=== PATIENT | male | born 1995 | race Caucasian/White ===

== ENCOUNTER 2018-01-10 17:27 | Emergency (ER) | payer MEDICAID | END 2018-01-10 17:35 | disposition home or self-care (01) | LOC: E/R 17:27 | DX: M25.512 Pain in left shoulder (principal); J45.909 Unspecified asthma, uncomplicated | CPT/HCPCS: 99283; Z7502 ==

== ENCOUNTER 2018-08-25 15:46 | Emergency (ER) | payer OTHER, MEDICAID ==
[2018-08-25] MEDS: ACETAMINOPHEN 325 MG TAB PO (16:19)
[2018-08-25] MEDS: ONDANSETRON (ODT) 4 MG TAB ODT (16:19)
[2018-08-25] MEDS: KETOROLAC 30 MG INJ IM (17:58)
== END 2018-08-25 18:38 | disposition home or self-care (01) ==
LOC: FTE 15:46
DX: R19.7 Diarrhea, unspecified (principal); J45.909 Unspecified asthma, uncomplicated; R11.2 Nausea with vomiting, unspecified
CPT/HCPCS: 96372; 99284-25

== ENCOUNTER 2018-08-30 15:21 | Emergency (ER) | payer SELFPAY, OTHER | END 2018-08-30 19:13 | disposition left against medical advice (07) | LOC: FTE 19:13 | DX: Z53.21 Procedure and treatment not carried out due to patient leaving prior to being seen by health care provider (principal) ==